=== PATIENT | male | born 1990 ===

== ENCOUNTER 2017-07-04 01:21 | Emergency (ER) | payer MEDICAID, OTHER ==
[2017-07-04 01:21] VITALS: BMI 25.7
[2017-07-04 01:51] VITALS: PULSE 94; RESP 16; TEMP 98.4; O2SAT 97
[2017-07-04 02:21] VITALS: BP 140/80
--- NOTE | 2017-07-04 02:37 | ED PDOC ---
HPI: Psych/Substance Abuse Time Seen by Provider: 07/04/17 01:37 Chief Complaint (Nursing): Psychiatric Evaluation Chief Complaint (Provider): Psychiatric Evaluation History Per: Patient History/Exam Limitations: no limitations Suicide/Self Injury Attempted (Context): None Modifying Factor(s): Marijuana Additional Complaint(s): 27 year old male brought in by police presents to ED for erratic behavior and has a past medical history of HTN. Patient admits to marijuana use, but denies using any other drugs or alcohol. Notes that he is upset because his uncle recently . Denies any psychiatric or medical complaints. PCP: None Past Medical History Reviewed: Historical Data, Nursing Documentation, Vital Signs Vital Signs: Last Vital Signs Temp 98.4 F 07/04/17 01:46 Pulse 94 H 07/04/17 01:46 Resp 16 07/04/17 01:46 BP 140/80 07/04/17 02:20 Pulse Ox 97 07/04/17 01:46 - Medical History PMH: Anxiety, Arthritis (right ankle), Asthma ( A CHILD), Back Problems ( Chronic), Bipolar Disorder, Depression, HTN, Schizophrenia, Chronic Pain (Back) Denies: Chronic Kidney Disease - Family History Family History: States: Unknown Family Hx - Social History Current smoker - smoking cessation education provided: Yes (light smoker) Ex-Smoker (has not smoked in the last 12 months): No Drugs: Cannabis, Other (PCP) - Immunization History Hx Tetanus Toxoid Vaccination: Yes Hx Influenza Vaccination: Yes Hx Pneumococcal Vaccination: No - Home Medications Home Medications: Ambulatory Orders Medication Instructions Recorded Ibuprofen [Motrin] 600 mg PO TID #30 tab 05/19/17 - Allergies Allergies/Adverse Reactions: Allergies Allergy/AdvReac Type Severity Reaction Status Date / Time No Known Allergies Allergy Verified 05/19/17 22:30 Review of Systems ROS Statement: Except As Marked, All Systems Reviewed And Found Negative ( Denies all psychiatric and medical complaints) Physical Exam - Reviewed Nursing Documentation Reviewed: Yes Vital Signs Reviewed: Yes - Physical Exam Appears: Positive for: Non-toxic, No Acute Distress Head Exam: Positive for: ATRAUMATIC Skin: Positive for: Normal Color, Warm, Dry Eye Exam: Positive for: EOMI, PERRL, Conjunctival injection ENT: Positive for: Normal ENT Inspection Neck: Positive for: Normal, Painless ROM Cardiovascular/Chest: Positive for: Regular Rate, Rhythm Respiratory: Positive for: Normal Breath Sounds. Negative for: Respiratory Distress Gastrointestinal/Abdominal: Positive for: Normal Exam, Soft. Negative for: Tenderness Back: Positive for: Normal Inspection Extremity: Positive for: Normal ROM. Negative for: Deformity Neurologic/Psych: Positive for: Alert, Oriented (x3), Gait (steady). Negative for: Motor/Sensory Deficits - ECG O2 Sat by Pulse Oximetry: 97 (RA) Pulse Ox Interpretation: Normal Medical Decision Making Medical Decision Makin Initial impression: marijuana use 0220 Patient is stable for discharge into police custody. Scribe Attestation: Documented by Lillian Lima acting as a scribe for Collins Dillard MD. Scribe Attestation: All medical record entries made by the Scribe were at my direction and personally dictated by me. I have reviewed the chart and agree that the record accurately reflects my personal performance of the history, physical exam, medical decision making, and the department course for this patient. I have also personally directed, reviewed, and agree with the discharge instructions and disposition. Disposition - Clinical Impression Clinical Impression: Marijuana abuse - Disposition Referrals: [facility] [Outside] [facility] [Outside] Disposition: Discharged/Transfer to Law Enforcement Disposition Time: 02:20 Condition: STABLE Additional Instructions: Medically and psychiatrically cleared for incarceration. Instructions: Cannabis Abuse (ED) Forms: [employer] (Danish)
== END 2017-07-04 02:21 ==
LOC: H.ER 01:21
DX: F12.10 Cannabis abuse, uncomplicated (principal); F41.9 Anxiety disorder, unspecified; I10 Essential (primary) hypertension; J45.909 Unspecified asthma, uncomplicated

== ENCOUNTER 2017-09-27 21:27 | Emergency (ER) | payer OTHER ==
[2017-09-27 21:27] VITALS: BMI 25.8
[2017-09-27 21:30] VITALS: BP 153/98; PULSE 78; RESP 18; TEMP 98.4; O2SAT 96
--- NOTE | 2017-09-27 22:11 | ED PDOC ---
HPI: Psych/Substance Abuse Time Seen by Provider: 09/27/17 21:43 Chief Complaint (Nursing): Substance Abuse Chief Complaint (Provider): Substance Abuse History Per: Patient History/Exam Limitations: no limitations Onset/Duration Of Symptoms: Mins (prior to arrival) Current Symptoms Are (Timing): Still Present Additional Complaint(s): 27 year old male brought in by EMS for alleged PCP use. He denies any use and has no medical complaints. PMD: none provided Past Medical History Reviewed: Historical Data, Nursing Documentation, Vital Signs Vital Signs: Last Vital Signs Temp 98.4 F 09/27/17 21:28 Pulse 78 09/27/17 21:28 Resp 18 09/27/17 21:28 BP 153/98 H 09/27/17 21:28 Pulse Ox 96 09/27/17 21:28 - Medical History PMH: Anxiety, Arthritis (right ankle), Asthma ( A CHILD), Back Problems ( Chronic), Bipolar Disorder, Depression, HTN, Schizophrenia, Chronic Pain (Back) Denies: Chronic Kidney Disease - Surgical History Surgical History: No Surg Hx - Family History Family History: States: Unknown Family Hx - Immunization History Hx Tetanus Toxoid Vaccination: Yes Hx Influenza Vaccination: Yes Hx Pneumococcal Vaccination: No - Home Medications Home Medications: Ambulatory Orders Medication Instructions Recorded Ibuprofen [Motrin] 600 mg PO TID #30 tab 05/19/17 - Allergies Allergies/Adverse Reactions: Allergies Allergy/AdvReac Type Severity Reaction Status Date / Time No Known Allergies Allergy Verified 09/11/17 00:17 Review of Systems ROS Statement: Except As Marked, All Systems Reviewed And Found Negative Physical Exam - Reviewed Nursing Documentation Reviewed: Yes Vital Signs Reviewed: Yes - Physical Exam Appears: Positive for: Non-toxic, No Acute Distress Head Exam: Positive for: ATRAUMATIC, NORMOCEPHALIC Skin: Positive for: Normal Color, Warm, Dry Eye Exam: Positive for: EOMI, Normal appearance, PERRL Neck: Positive for: Normal, Painless ROM, Supple Cardiovascular/Chest: Positive for: Regular Rate, Rhythm Respiratory: Positive for: CNT, Normal Breath Sounds Extremity: Positive for: Normal ROM. Negative for: Deformity Neurologic/Psych: Positive for: Alert, Oriented (x 3), Gait (steady) - ECG O2 Sat by Pulse Oximetry: 96 (RA) Pulse Ox Interpretation: Normal Medical Decision Making Medical Decision Making: Time: 21:43 Impression: drug abuse Patient is stable and will be discharged home. Return to ED if symptoms persist or worsen. Scribe Attestation: Documented by Susan Stewart, acting as a scribe for Collins Dillard MD. Provider Scribe Attestation: All medical record entries made by the Scribe were at my direction and personally dictated by me. I have reviewed the chart and agree that the record accurately reflects my personal performance of the history, physical exam, medical decision making, and the department course for this patient. I have also personally directed, reviewed, and agree with the discharge instructions and disposition. Disposition - Clinical Impression Clinical Impression: Drug abuse - Patient ED Disposition Is Patient to be Admitted: No - Disposition [facility]errals: [facility] [Outside] Disposition: Routine/Home Disposition Time: 22:00 Condition: STABLE Instructions: Drug Abuse and Drug Addiction (DC) Forms: [employer] (Mongolian)
== END 2017-09-27 22:15 | disposition home or self-care (01) ==
LOC: H.ER 21:27
DX: F19.10 Other psychoactive substance abuse, uncomplicated (principal); F41.9 Anxiety disorder, unspecified; J45.909 Unspecified asthma, uncomplicated